=== PATIENT | female | born 1995 | race African-American/Black ===

== ENCOUNTER 2023-09-27 21:04 | Emergency (ER) | payer SELFPAY ==
[~2023-09-27] VITALS: Ht 162.6 cm; Wt 60.0 kg
[2023-09-27 21:25] VITALS: BP 132/88; PULSE 74; RESP 16; TEMP 98.2
[2023-09-27 21:33] LABS: BASOPHILS % (AUTO) 0.4 % (0.0-2.0); EOSINOPHILS % (AUTO) 0.6 % (1.0-6.0); HEMATOCRIT 31.6 % (36-46); LYMPHOCYTES # (AUTO) 1.2 K/uL (1.0-4.8); LYMPHOCYTES % (AUTO) 39.1 % (22.0-44.0); MEAN CORPUSCULAR HEMOGLOBIN 24.2 pg (26.0-34.0); MEAN CORPUSCULAR HGB CONC 31.7 G/dL (31.0-37.0); MEAN CORPUSCULAR VOLUME 76 fL (80-100); MONOCYTES # (AUTO) 0.2 K/uL (0.1-1.0); MONOCYTES % (AUTO) 5.9 % (2.0-9.0); NEUTROPHILS # (AUTO) 1.6 K/uL (1.8-7.7); PLATELET COUNT (AUTO) 197 K/uL (150-450); RED BLOOD CELL COUNT(AUTO) 4.14 MIL/uL (4.00-5.20); RED CELL DISTRIBUTION WIDTH 19.9 % (11.5-14.5)
[2023-09-27 21:41] LABS: ANION GAP 12 mmol/L (8-16); CARBON DIOXIDE 28 mmol/L (22-29); CHLORIDE 99 mmol/L (98-107); CREATININE 0.59 mg/dL (0.60-1.30); GLOMERULAR FILTR. RATE CALC > 60 mL/min (>60); GLUCOSE,RANDOM 104 mg/dL (70-110); POTASSIUM 3.6 mmol/L (3.5-5.1); SODIUM SERUM 139 mmol/L (136-145); UREA NITROGEN, BLOOD 8 mg/dL (7-18)
[2023-09-27 21:45] LABS: COVID AG,FIA SOURCE NASAL SWAB
[2023-09-27 21:47] LABS: ALANINE AMINOTRANSFERASE 11 U/L (12-78); ALBUMIN 4.1 g/dL (3.4-5.0); ALKALINE PHOSPHATASE 82 U/L (46-116); ASPARTATE AMINOTRANSFERASE 22 U/L (15-37); TOTAL PROTEIN, SERUM 7.9 g/dL (6.4-8.2)
[2023-09-27 21:49] LABS: ALCOHOL, BLOOD (SERUM) < 3 mg/dL (0-10)
[2023-09-27 22:01] LABS: SARS-COV2 (COVID) ANTIGEN,FIA Negative (Negative)
== END 2023-09-28 00:42 | disposition home or self-care (01) ==
LOC: EMS 21:07
DX: F41.9 Anxiety disorder, unspecified (principal); Z88.2 Allergy status to sulfonamides; Z91.018 Allergy to other foods; Z20.822 Contact with and (suspected) exposure to COVID-19
CPT/HCPCS: 99283; 87426; 80053; 84703; 85025; 36415; G0480

== ENCOUNTER 2024-02-19 19:56 | Emergency (ER) | payer SELFPAY ==
[~2024-02-19] VITALS: Ht 152.4 cm; Wt 45.5 kg
[2024-02-19 20:08] VITALS: TEMP 98.1
[2024-02-19] MEDS ORDERED: KETOROLAC TROMETHAMINE 30 MG/ML VIAL IVP ONE (23:15)
[2024-02-19] MEDS: KETOROLAC TROMETHAMINE 15 MG/ML VIAL IVP ONE (23:24)
[2024-02-19] MEDS: IBUPROFEN 400 MG TABLET PO ONE (23:50)
[2024-02-19 23:51] VITALS: BP 134/80; PULSE 108; RESP 20; O2SAT 99
== END 2024-02-20 00:44 | disposition left against medical advice (07) ==
LOC: EMS 19:56
DX: R07.89 Other chest pain (principal); M94.0 Chondrocostal junction syndrome [Tietze]; Z88.2 Allergy status to sulfonamides
CPT/HCPCS: 99283; 71045; 93005; J1885; 99285

== ENCOUNTER 2024-07-05 15:11 | Emergency (ER) | payer SELFPAY ==
[~2024-07-05] VITALS: Ht 160 cm; Wt 51.1 kg
[2024-07-05 15:28] VITALS: TEMP 98.5
[2024-07-05 16:48] LABS: COVID AG,FIA SOURCE NASAL SWAB
[2024-07-05 17:17] LABS: SARS-COV2 (COVID) ANTIGEN,FIA Negative (Negative)
[2024-07-05 17:18] LABS: INFLUENZA TYPE A NEGATIVE FOR TYPE A (NEGATIVE); INFLUENZA TYPE B NEGATIVE FOR TYPE B (NEGATIVE)
[2024-07-05 18:37] VITALS: BP 114/63; PULSE 92; RESP 18; O2SAT 100
== END 2024-07-05 18:38 | disposition home or self-care (01) ==
LOC: EMS 15:11
DX: J06.9 Acute upper respiratory infection, unspecified (principal); B97.89 Other viral agents as the cause of diseases classified elsewhere; R06.02 Shortness of breath; Z88.2 Allergy status to sulfonamides; Z20.822 Contact with and (suspected) exposure to COVID-19
CPT/HCPCS: 71045; 87804; 99284